=== PATIENT | male | born 1990 | race American Indian/Alaskan Native ===

== ENCOUNTER 2017-09-27 17:18 | Emergency (ER) | payer SELFPAY ==
[2017-09-27 17:43] VITALS: BP 133/81
[2017-09-27] MEDS ORDERED: NORCO 5/325 PO ONE (20:06)
[2017-09-27] MEDS ORDERED: BOOSTRIX IM ONE (20:06)
[2017-09-27] MEDS ORDERED: KEFLEX PO ONE (20:07)
--- NOTE | 2017-09-27 20:08 | Emergency Department Report ---
- General Chief Complaint: Wound/Laceration Stated Complaint: RIGHT TOE ABRASION Time Seen by Provider: 09/27/17 19:03 Source: patient Mode of arrival: Ambulatory Limitations: No Limitations - History of Present Illness Initial Comments: 27-year-old male past medical history none presents with laceration to tip of right toe. As per patient he was walking down the driveway wearing flip-flops slipped and skin the tip of his right great toe. Last tetanus shot may have been in 2011. Patient has visible skin avulsion at tip of right toe -: This evening Extremity Location: Right: Foot (right great toe) Place: home Patient Tetanus UTD: Yes Context: accidental Associated Symptoms: pain Treatments Prior to Arrival: cold therapy - Related Data Previous Rx's Medication Instructions Recorded Last Taken Type Cephalexin [Keflex] 500 mg PO BID #20 capsule 09/27/17 Unknown Rx Ibuprofen [Motrin] 800 mg PO Q8HR PRN #20 tablet 09/27/17 Unknown Rx Allergies Allergy/AdvReac Type Severity Reaction Status Date / Time No Known Allergies Allergy Verified 09/27/17 17:41 ED Review of Systems ROS: Stated complaint: RIGHT TOE ABRASION Other details as noted in HPI Constitutional: denies: chills, fever Eyes: denies: eye pain, eye discharge, vision change ENT: denies: ear pain, throat pain Respiratory: denies: cough, shortness of breath, wheezing Cardiovascular: denies: chest pain, palpitations Endocrine: no symptoms reported Gastrointestinal: denies: abdominal pain, nausea, diarrhea Genitourinary: denies: urgency, dysuria Musculoskeletal: denies: back pain, joint swelling, arthralgia Skin: denies: rash, lesions Neurological: denies: headache, weakness, paresthesias Psychiatric: denies: anxiety, depression Hematological/Lymphatic: denies: easy bleeding, easy bruising ED Past Medical Hx - Past Medical History Previous Medical History?: No - Surgical History Past Surgical History?: No - Social History Smoking Status: Never Smoker Substance Use Type: None - Medications Home Medications: Home Medications Medication Instructions Recorded Confirmed Last Taken Type Cephalexin [Keflex] 500 mg PO BID #20 capsule 09/27/17 Unknown Rx Ibuprofen [Motrin] 800 mg PO Q8HR PRN #20 tablet 09/27/17 Unknown Rx ED Physical Exam - General Limitations: No Limitations General appearance: alert, in no apparent distress - Head Head exam: Present: atraumatic, normocephalic - Eye Eye exam: Present: normal appearance, PERRL, EOMI - ENT ENT exam: Present: mucous membranes moist - Neck Neck exam: Present: normal inspection - Respiratory Respiratory exam: Present: normal lung sounds bilaterally. Absent: respiratory distress - Cardiovascular Cardiovascular Exam: Present: regular rate, normal rhythm. Absent: systolic murmur, diastolic murmur, rubs, gallop - GI/Abdominal GI/Abdominal exam: Present: soft, normal bowel sounds - Rectal Rectal exam: Present: deferred - Extremities Exam Extremities exam: Present: normal inspection - Expanded Lower Extremity Exam Right Ankle exam: Present: normal inspection, full ROM Foot/Toe exam: Present: full ROM, tenderness, laceration (rectal regular shaped avulsion laceration to distal right great toe no involvement of nail bed) Neuro vascular tendon exam: Present: no vascular compromise Gait: Positive: observed and normal 1 - Laceration here - Back Exam Back exam: Present: normal inspection - Neurological Exam Neurological exam: Present: alert, oriented X3, CN II-XII intact, normal gait - Psychiatric Psychiatric exam: Present: normal affect, normal mood - Skin Skin exam: Present: warm, dry, intact, normal color. Absent: rash ED Course Vital Signs 09/27/17 17:41 Temperature 97.9 F Pulse Rate 81 Respiratory 18 Rate Blood Pressure 133/81 O2 Sat by Pulse 100 Oximetry ED Medical Decision Making - Medical Decision Making A/P: Right great toe skin avulsion 1- wound dressed with Xeroform then dry gauze on top. Area of avulsion is approximately 1 x 2 cm. Patient instructed on basic wound care 2- empiric course of Keflex, course of Motrin when necessary 3- follow-up with podiatry or wound chekc in the ED in 3-5 days 4- pt advised to return to ed for fever, chills, pus drainge from site Critical care attestation.: If time is entered above; I have spent that time in minutes in the direct care of this critically ill patient, excluding procedure time. ED Disposition Clinical Impression: Toe laceration Qualifiers: Encounter type: initial encounter Toe: great toe Damage to nail status: without damage Foreign body presence: without foreign body Laterality: right Qualified Code(s): S91.111A - Laceration without foreign body of right great toe without damage to nail, initial encounter Disposition: TO HOME OR SELFCARE Is pt being admited?: No Does the pt Need Aspirin: No Condition: Stable Instructions: Suture Care (ED), Laceration (ED), Acute Wound Care (ED), Skin Avulsion (ED) Prescriptions: Cephalexin [Keflex] 500 mg PO BID #20 capsule Ibuprofen [Motrin] 800 mg PO Q8HR PRN #20 tablet PRN Reason: Pain Referrals: [facility] [Provider Group] - 3-5 Days Forms: Work/School Release Form(ED) Time of Disposition: 21:44
[2017-09-27] MEDS ORDERED: XYLOCAINE 2% INFILTRATI ONE (20:33)
--- NOTE | 2017-09-28 14:31 | XRay Report ---
FINAL REPORT EXAM: XR TOE(S) 2+V RT HISTORY: larg laceration right great toe, pain TECHNIQUE: PRIORS: None. FINDINGS: There is soft tissue defect tip of the great toe. No fracture is identified. The joint spaces are within normal limits. No focal bony lesion identified. No radiopaque foreign body seen. IMPRESSION: Soft tissue defect tip of the great toe. No fracture or radiopaque foreign body identified
== END 2017-09-27 21:58 | disposition home or self-care (01) ==
LOC: ED 17:18
DX: S91.111A Laceration without foreign body of right great toe without damage to nail, initial encounter (principal); W01.0XXA Fall on same level from slipping, tripping and stumbling without subsequent striking against object, initial encounter; Y93.89 Activity, other specified; Y92.89 Other specified places as the place of occurrence of the external cause; Y99.8 Other external cause status
CPT/HCPCS: 90471; 90715; 99283